=== PATIENT | female | born 1945 | race Caucasian/White ===

== ENCOUNTER → 2017-10-26 | Outpatient (CLI) | payer MEDICARE, OTHER | END | disposition home or self-care (01) | LOC: KCIC MRI 10:59 | DX: I95.1 Orthostatic hypotension (principal) | CPT/HCPCS: 70551 ==

== ENCOUNTER → 2017-11-16 | Outpatient (CLI) | payer MEDICARE, OTHER ==
[~2017-11-16] MED LIST: ASPI325T8 PO; ATOR10TA60 PO; DIGO125T79 PO; ESOM20CA PO; ESTR2TAB PO; LISI-334 PO; METO-269 PO; MORP15TA80 PO; PROG200C15 PO; ROPI0.25 PO; THYR60TA PO; UBID100C PO
--- NOTE | 2017-11-16 14:17 | KCIC ---
Neck MRA without contrast History: Orthostasis, uncertain findings of carotid ultrasound Technique: Noncontrast MR angiography was performed of the neck. Comparison: None Findings: Determination of any degree of stenosis is based on NASCET criteria. There is motion degradation. There is medial deviation of the cervical internal carotid arteries bilaterally into the retropharyngeal region. No significant focal stenosis is identified of the cervical arterial vasculature. There are normal anatomic origins of the great vessels. Impression: 1. There is no significant stenosis of the cervical arterial vasculature. There is medial deviation of the cervical carotid arteries bilaterally. Electronically signed by: Chrsi Guallpa MD (11/16/2017 2:14 PM) [id number]
== END | disposition home or self-care (01) ==
LOC: KCIC MRI 12:31
PROVIDERS: ATTEND Internal Medicine
DX: I77.89 Other specified disorders of arteries and arterioles (principal)
CPT/HCPCS: 70547

== ENCOUNTER → 2019-11-29 | Outpatient (CLI) | payer MEDICARE, OTHER ==
--- NOTE | 2019-11-29 11:43 | KCIC ---
EXAM: Lumbar spine MRI without contrast. HISTORY: Disc degeneration. TECHNIQUE: Multiplanar, multisequence magnetic resonance imaging of the lumbar spine was performed without contrast. COMPARISON: 09/18/2015. FINDINGS: There is mild lumbar scoliosis. There is mild retrolisthesis of L1 on L2, L2 on L3 and L3 on L4. There is grade 1 anterolisthesis of L4 and L5, measuring 4 mm. There is grade 1 anterolisthesis of L5 on S1, measuring 3 mm. There is instrumented posterior spinal fusion and disc space fusion device placement at L4-L5. There is endplate remodeling and disc space narrowing at multiple levels. There is relative sparing of the disc space at L5-S1. There are few endplate Schmorl's nodes. There is no fracture or suspicious osseous lesion. The conus terminates at L1. There is a tiny simple cyst within the left kidney. No follow-up is routinely recommended for simple renal cysts. At L1-L2, there is a posterior central disc protrusion with 3 mm superior endplate and inferior extrusion superimposed on endplate osteophytosis. There is mild retrolisthesis. There is mild bilateral facet arthropathy. There is mild bilateral foraminal stenosis. There is mild central canal stenosis. At L2-L3, there is a diffuse disc bulge and endplate osteophytosis. There is mild to moderate bilateral facet arthropathy. There is mild retrolisthesis. There is mild right foraminal stenosis. There is mild central canal stenosis. At L3-L4, there is a left lateral predominant disc bulge and endplate osteophytosis. There is severe bilateral facet arthropathy. There is hypertrophy of the ligamentum flavum. There is mild retrolisthesis. There is moderate right and severe left foraminal stenosis. There is severe central canal stenosis. At L4-L5, there is instrumented fusion. There is grade 1 anterolisthesis. There is no stenosis. At L5-S1, there is moderate right and severe left facet arthropathy. There is grade 1 anterolisthesis. There is no stenosis. IMPRESSION: 1. Instrumented posterior spinal fusion with disc space fusion device placement and laminectomy decompression at L4-L5. There is no residual stenosis at this level. 2. Multilevel degenerative change throughout the remainder of the lumbar spine, described in detail above. This is associated with mild bilateral foraminal and central canal stenosis at L1-L2, mild right foraminal and central canal stenosis at L2-L3, and moderate right and severe left foraminal and severe central canal stenosis at L3-L4. These degenerative changes have slightly increased at L3-L4 compared to the prior exam. There has been no significant change at the remainder of the lumbar levels compared to the prior exam. 3. Lumbar scoliosis and multilevel listhesis, stable in appearance. Electronically signed by: Tanya Nina MD (11/29/2019 11:40 AM) [id number]
== END | disposition home or self-care (01) ==
LOC: KCIC MRI 10:29
PROVIDERS: ATTEND Nurse Practitioner Family
DX: M47.817 Spondylosis without myelopathy or radiculopathy, lumbosacral region (principal); M41.86 Other forms of scoliosis, lumbar region; M51.47 Schmorl's nodes, lumbosacral region; N28.1 Cyst of kidney, acquired; M48.061 Spinal stenosis, lumbar region without neurogenic claudication
CPT/HCPCS: 72148

== ENCOUNTER → 2020-01-16 | Outpatient (CLI) | payer MEDICARE, OTHER ==
--- NOTE | 2020-01-16 13:20 | KCIC ---
EXAM: Brain MRI without contrast. HISTORY: Impaired cognition. Cognitive delay. TECHNIQUE: Multiplanar, multisequence magnetic resonance imaging of the brain was performed without contrast. COMPARISON: 10/26/2017. FINDINGS: There is no restricted diffusion to suggest acute or subacute infarction. There is no susceptibility effect to suggest hemorrhage. There is no mass effect or midline shift. There is no hydrocephalus. There is mild age-appropriate cerebral volume loss. There is nonspecific signal change within the cerebral white matter, most commonly due to mild chronic small vessel disease in patients of this age. There is a tiny inferior right maxillary sinus mucous retention cyst. There is evidence of lens surgery. The mastoid air cells are clear. There are normal flow voids within the cerebral vessels. There is no calvarial lesion. IMPRESSION: 1. No acute intracranial finding. 2. Minimal signal change within the cerebral white matter, likely due to chronic small vessel disease. There is also mild age-appropriate cerebral volume loss. Electronically signed by: Tanya Nina MD (01/16/2020 1:16 PM) [id number]
== END ==
LOC: KCIC MRI 12:25
PROVIDERS: ATTEND Internal Medicine
DX: R41.89 Other symptoms and signs involving cognitive functions and awareness (principal); J34.1 Cyst and mucocele of nose and nasal sinus
CPT/HCPCS: 70551